=== PATIENT | male | born 1940 | race Caucasian/White ===

== ENCOUNTER → 2025-01-17 21:21 | Outpatient (BNV) | payer OTHER, MEDICARE, SELFPAY | PROVIDERS: Emergency Provider Emergency Medicine; PCP Nurse Practitioner Primary Care; Visit Provider Internal Medicine | DX: I49.1 Atrial premature depolarization (principal); I45.89 Other specified conduction disorders; I42.2 Other hypertrophic cardiomyopathy | CPT/HCPCS: 93010 ==

== ENCOUNTER 2025-01-17 21:22 | Emergency (ER) | payer OTHER, MEDICARE, SELFPAY ==
--- NOTE | 2025-01-17 | ECG_ITS ---
Test Reason : UPPER ABD PAIN Blood Pressure : */* mmHG Vent. Rate : 65 BPM Atrial Rate : 65 BPM P-R Int : 248 ms QRS Dur : 130 ms QT Int : 438 ms P-R-T Axes : -1 -53 41 degrees QTcB Int : 455 ms Atrial-paced rhythm with prolonged AV conduction with Premature atrial complexes Left axis deviation Left ventricular hypertrophy with QRS widening ( R in aVL , [place] product ) Abnormal ECG No previous ECGs available Referred By: Generic ED Physician Electronically Signed By: NAZANIN CALDERON
--- NOTE | ~2025-01-17 | XR_ITS ---
CLINICAL HISTORY: Epigastric chest pain 1 view chest x-ray Comparison: None provided Findings: Lungs are clear without acute infiltrates. No pneumothorax. Heart size normal. No acute bony abnormalities. Left pacemaker with right heart leads. Impression: No acute processes This document has been electronically signed by: Watson Charles MD on 01/17/2025 23:11:55
[2025-01-17 21:18] VITALS: BP 139/90; PULSE 64; O2SAT 94
[2025-01-17 21:23] VITALS: BP 125/55; PULSE 65; RESP 18; TEMP 36.6; O2SAT 96; BMI 31.2
[2025-01-17 21:43] LABS: MANUAL DIFF FLAG NO
[2025-01-17 21:44] LABS: Hematocrit 41.0 % (42.0-52.0); Hemoglobin 14.0 g/dl (14.0-18.0); Imm Gran Abs Auto 0.02 X10*3/uL (0.00-0.03); Imm Gran Pct Auto 0.4 % (0.0-0.4); Lymphocytes Absolute Auto 1.0 X10*3/uL (1.2-4.9); Mean Corpuscular HGB Conc 34.1 g/dl (31.0-36.0); Mean Corpuscular Hemoglobin 29.7 pg (27.0-33.0); Mean Corpuscular Volume 86.9 fL (80.0-98.0); NRBC Abs Auto 0.000 X10*3/uL (0.0-0.012); NRBC Pct Auto 0.0 /100WBC (0.0-0.2); Platelet Count 226 X10*3/uL (160-400); Red Blood Count 4.72 X10*6/uL (4.60-5.80); White Blood Count 5.7 X10*3/uL (4.8-10.8)
[2025-01-17 21:52] VITALS: BP 119/55; PULSE 64; RESP 14; O2SAT 94
[2025-01-17 21:52] LABS: INTERNATIONAL NORM RATIO 1.1 (0.9-1.1); Prothrombin Time 12.1 SEC (10.9-12.4)
[2025-01-17 22:01] LABS: Alanine Aminotransferase 46 U/L (0-40); Albumin Level 4.1 g/dL (3.5-5.0); Alkaline Phosphatase 82 U/L (39-117); Anion Gap 11 (12-20); Aspartate Amino Transferase 52 U/L (5-37); Blood Urea Nitrogen 22 mg/dL (9-16); Calcium 8.8 mg/dL (8.4-10.2); Carbon Dioxide 27 mmol/L (22-29); Chloride 107 mmol/L (96-108); Creatinine Clr Calc Pharmacy 63.0; Estimated Glomerular Filt Rate > 60; Lipase 55 U/L (8-78); Potassium 4.1 mmol/L (3.3-5.1); Sodium 141 mmol/L (135-145); Total Protein 6.6 g/dL (6.5-8.0)
[2025-01-17 22:09] LABS: Troponin-I High Sensitivity 4.9 ng/L (<3.5-35.0)
--- NOTE | 2025-01-17 22:19 | ED.ABDPAIN ---
HPI - Abdominal Pain General Chief Complaint: Abdominal Pain Stated Complaint: upper abd pain Time Seen by Provider: 01/17/25 22:18 History of Present Illness ED Provider: Emory Marshall MD HPI narrative: [age] male with severe midepigastric pain after eating tacos was found to be pale diaphoretic got aspirin. History of pacemaker on arrival felt better per triage note Patient tells me he mostly had epigastric pain abruptly right after eating tacos with heavy seizing. He usually needs a bland diet and attributes his symptoms to these tacos, the at the bedside also feels this was food related. No chest pain difficulty breathing. She said did say he looked a little bit clammy and pale briefly. Patient has a history of sick sinus syndrome with pacer he tells me it has 16% demand pacing. No known aortic disease otherwise quite healthy. Asymptomatic when I evaluate him he did not describe to me any radiation to the back shoulder neck jaw Related Data Previous Rx's ?Medication ?Instructions ?Recorded ondansetron 4 mg disintegrating 4 mg PO Q8H PRN nausea and 01/18/25 tablet vomiting #7 tabs Allergies Allergy/AdvReac Type Severity Reaction Status Date / Time No Known Allergies Allergy Verified 01/17/25 21:28 [facility] Social History Social History Alcohol intake: current Smoked in Last 30 Days: No Use of substances other than those prescribed or required for medical reasons: No Advance Directives: No Advance Directives Information Provided: Yes Physical Exam ED Vital Signs: Vital Signs - 24 hr 01/17/25 21:23 01/17/25 21:52 01/18/25 00:06 Temperature 97.8 F 97.8 F Pulse Rate 65 64 60 Respiratory Rate 18 14 16 Blood Pressure 125/55 L 119/55 L 119/66 Pulse Oximetry 96 94 94 Oxygen Delivery Method Room Air Room Air Room Air BMI result Body Mass Index 31.2 EXAM: Gen: Alert, awake, well appearing, well hydrated. Head: Atraumatic Eyes: Anicteric, Normal conjunctiva. ENT: Moist mucosa, no pallor. ? Neck: Supple. Skin: ?No observable rash or bruising on exposed or examined skin Respiratory: Breathing comfortably, No distress.Clear to auscultation bilaterally, symmetric chest expansion, No wheeze, rales, ronchi. Cardiovascular: Irregular with intermittent pacing. Rate approximately 60-70 No murmurs or rub. Well perfused periphery, warm extremities. No edema. ?Palpable pacer Abdominal: No focal tenderness. Soft, no objective distension. No palpable masses or obvious organomegaly. ?No guarding, no rebound tenderness or other peritoneal findings. : No flank tenderness. Neuro: Alert. Gross movement of all extremities intact. ? Psych: Calm. Cooperative. MSK: No grossly visible deformity. Vital signs: See flowsheet Procedures Procedure Narrative Procedure Narrative: EMERGENCY ULTRASOUND INTERPRETATION-Limited Echocardiography [This study was ordered, performed, and interpreted by myself. The study reveals: Impression: NORMAL LV FUNCTION, NO RV DYSFUNCTION, NO PERICARDIAL EFFUSION] [Emergent Cardiac for Indication: Views Used: PLAX, PSSA, A4, SX, IVC Pericardial Effusion/Tamponade Findings: NONE RV Dilation (> LV diam in 4ch apical): NONE Global LV Fxn: NORMAL IVC Dilation and Resp Variation: NORMAL Performed by: MD Rolando Images were stored CPT:03746] ___ EMERGENCY ULTRASOUND INTERPRETATION- Limited Point of Care Biliary [This study was ordered, performed, and interpreted by myself. Some limitation including slightly poor visualization of the gallbladder neck and CBD The study reveals: Impression: NO EVIDENCE OF ACUTE INFLAMMATION OF THE GALLBLADDER, NO EVIDENCE OF OBSTRUCTIVE BILIARY DISEASE] [Indication: RUQ PAIN Gallbladder: NO WALL THICKENING > 4MM, NO PERICHOLECYSTIC FLUID, NOT GROSSLY DILATED/HYDROPIC. -Additional: WALL MEASUREMENT: CBD MEASURMENT IF OBTAINED: Incidental imaging of the abdominal aorta in sagittal and transverse shows no signs of AAA Performed by: Emory Marshall MD Images were stored CPT:52422] Medical Decision Making Medical Decision Making MDM Narrative: Medical Decision Makin-year-old male with history of CAD status post stent, pacemaker who reports brief and sudden epigastric discomfort after eating tacos he was sweaty received aspirin and arrived without pain. No radiation of the back no numbness tingling weakness of the legs when I met him he was perfectly comfortable and had no acute symptoms. Him and his attributing this to the tacos and generalized GI upset after unusual or exotic foods particularly at nighttime. Patient has no abdominal tenderness no pulsatile mass has reassuring neurovascular exam of the lower extremities and has no cardiac symptoms. Certainly be given the epigastric pain and his cardiac history I felt it reasonable to exclude CO, 2 serial troponins negative. Bedside echo reassuring see procedure note. Bedside ultrasound the biliary system without acute pathology noted given some limitations. Preliminary Favored Differential Diagnosis: Gastritis/PUD/postprandial abdominal pain favored over anginal equivalents/CO, AAA, pancreatitis, biliary pathology among additional considered etiologies Testing Interpreted Independently: Echo without acute pathology see procedure note, point of care ultrasound of the biliary system without acute pathology see procedure note. ECG: Sinus rhythm versus junctional escape, the patient has history of sick sinus syndrome. Intermittent pacing, QRS 130, rate 65. Radiology or Lab testing Results Reviewed: Troponin x2 negative, CBC normal. Chemistry non actionable. Nonfasting glucose elevated 145 normal electrolytes. LFTs lipase normal chest x-ray without acute findings Consults: Not Applicable Independent Historians/External Chart Reviews: Not Applicable Social Determinants of Health Impacting MDM/Planning: Not Applicable Lab Data 01/17/25 21:39 01/17/25 21:39 Labs: Lab Results 01/17/25 01/17/25 01/17/25 Range/Units 21:39 22:14 23:57 WBC 5.7 (4.8-10.8) X10*3/uL RBC 4.72 (4.60-5.80) X10*6/uL Hgb 14.0 (14.0-18.0) g/dl Hct 41.0 L (42.0-52.0) % MCV 86.9 (80.0-98.0) fL MCH 29.7 (27.0-33.0) pg MCHC 34.1 (31.0-36.0) g/dl RDW 12.9 (11.0-16.0) % Plt Count 226 (160-400) X10*3/uL MPV 9.1 L (9.4-12.4) fL Immature Gran % (Auto) 0.4 (0.0-0.4) % Neut % (Auto) 70.8 (45-73) % Lymph % (Auto) 17.7 L (20-40) % [place] % (Auto) 7.9 (2-11) % Eos % (Auto) 3.0 (0-4) % Baso % (Auto) 0.2 (0-2) % Lymph # (Auto) 1.0 L (1.2-4.9) X10*3/uL [place] # (Auto) 0.5 (0.1-1.2) X10*3/uL Eos # (Auto) 0.2 (0.0-0.4) X10*3/uL Baso # (Auto) 0.0 (0.0-0.2) X10*3/uL Abs Immat Gran (auto) 0.02 (0.00-0.03) X10*3/uL Absolute Neuts (auto) 4.0 (2.0-8.3) x10*3/uL Absolute Nucleated RBC 0.000 (0.0-0.012) X10*3/uL Nucleated RBC % (auto) 0.0 (0.0-0.2) /100WBC PT 12.1 (10.9-12.4) SEC INR 1.1 (0.9-1.1) Sodium 141 (135-145) mmol/L Potassium 4.1 (3.3-5.1) mmol/L Chloride 107 (96-108) mmol/L Carbon Dioxide 27 (22-29) mmol/L Anion Gap 11 L (12-20) BUN 22 H (9-16) mg/dL Creatinine 1.09 (0.5-1.4) mg/dL Estim Creat Clear Calc 63.0 Estimated GFR > 60 Random Glucose 145 H (60-115) mg/dL Calcium 8.8 (8.4-10.2) mg/dL Total Bilirubin 0.4 (0.0-1.0) mg/dL AST 52 H (5-37) U/L ALT 46 H (0-40) U/L Alkaline Phosphatase 82 (39-117) U/L Troponin I High Sens 4.9 (<3.5-35.0) ng/L Total Protein 6.6 (6.5-8.0) g/dL Albumin 4.1 (3.5-5.0) g/dL Lipase 55 (8-78) U/L Urine Color Yellow Urine Appearance Clear Urine pH 6.5 (5.0-9.0) Ur Specific [place] 1.020 (1.005-1.025) Urine Protein Negative (Neg-Trace) mg/dL Urine Glucose (UA) Negative (Negative) mg/dL Urine Ketones Trace (Negative) mg/dL Urine Blood Moderate (2+) H (Negative) Urine Nitrite Negative (Negative) Ur Leukocyte Esterase Small (1+) H (Negative) Urine RBC >20 H (0-2) /HPF Urine WBC 6-10 H (0-5) /HPF Ur Squamous Epith Cells 0-2 (0-2) /HPF Urine Bacteria None Seen (None Seen) Hyaline Casts 0-2 (0-2) /LPF Influenza Type A (PCR) NEGATIVE (Negative) Influenza Type B (PCR) NEGATIVE (Negative) RSV RNA Qual (PCR) NEGATIVE (Negative) SARS-CoV-2 RNA (RT-PCR) NEGATIVE (Negative) 01/18/25 Range/Units 00:05 WBC (4.8-10.8) X10*3/uL RBC (4.60-5.80) X10*6/uL Hgb (14.0-18.0) g/dl Hct (42.0-52.0) % MCV (80.0-98.0) fL MCH (27.0-33.0) pg MCHC (31.0-36.0) g/dl RDW (11.0-16.0) % Plt Count (160-400) X10*3/uL MPV (9.4-12.4) fL Immature Gran % (Auto) (0.0-0.4) % Neut % (Auto) (45-73) % Lymph % (Auto) (20-40) % [place] % (Auto) (2-11) % Eos % (Auto) (0-4) % Baso % (Auto) (0-2) % Lymph # (Auto) (1.2-4.9) X10*3/uL [place] # (Auto) (0.1-1.2) X10*3/uL Eos # (Auto) (0.0-0.4) X10*3/uL Baso # (Auto) (0.0-0.2) X10*3/uL Abs Immat Gran (auto) (0.00-0.03) X10*3/uL Absolute Neuts (auto) (2.0-8.3) x10*3/uL Absolute Nucleated RBC (0.0-0.012) X10*3/uL Nucleated RBC % (auto) (0.0-0.2) /100WBC PT (10.9-12.4) SEC INR (0.9-1.1) Sodium (135-145) mmol/L Potassium (3.3-5.1) mmol/L Chloride (96-108) mmol/L Carbon Dioxide (22-29) mmol/L Anion Gap (12-20) BUN (9-16) mg/dL Creatinine (0.5-1.4) mg/dL Estim Creat Clear Calc Estimated GFR Random Glucose (60-115) mg/dL Calcium (8.4-10.2) mg/dL Total Bilirubin (0.0-1.0) mg/dL AST (5-37) U/L ALT (0-40) U/L Alkaline Phosphatase (39-117) U/L Troponin I High Sens 4.7 (<3.5-35.0) ng/L Total Protein (6.5-8.0) g/dL Albumin (3.5-5.0) g/dL Lipase (8-78) U/L Urine Color Urine Appearance Urine pH (5.0-9.0) Ur Specific [place] (1.005-1.025) Urine Protein (Neg-Trace) mg/dL Urine Glucose (UA) (Negative) mg/dL Urine Ketones (Negative) mg/dL Urine Blood (Negative) Urine Nitrite (Negative) Ur Leukocyte Esterase (Negative) Urine RBC (0-2) /HPF Urine WBC (0-5) /HPF Ur Squamous Epith Cells (0-2) /HPF Urine Bacteria (None Seen) Hyaline Casts (0-2) /LPF Influenza Type A (PCR) (Negative) Influenza Type B (PCR) (Negative) RSV RNA Qual (PCR) (Negative) SARS-CoV-2 RNA (RT-PCR) (Negative) Medications Administered Discontinued Medications Generic Name Dose Route Start Last Admin Trade Name Freq PRN Reason Stop Dose Admin Al Hydroxide/Mg Hydroxide 30 ml 01/17/25 22:20 01/17/25 22:34 Magnesium Hydrox/Alum Hydrox 30 Ml Oral.Susp PO 01/17/25 22:21 30 ml ONCE ONE Administration Pantoprazole Sodium 40 mg 01/17/25 22:20 01/17/25 22:34 Pantoprazole Sodium 40 Mg/10 Ml Vial IVPUSH 01/17/25 22:21 40 mg ONCE ONE Administration Sucralfate 1 gm 01/17/25 22:20 01/17/25 22:34 Sucralfate Oral Suspension 1 Gm/10 Ml Oral.Susp PO 01/17/25 22:21 1 gm ONCE ONE Administration Discharge Plan Discharge Clinical Impression: Abdominal pain, acute, epigastric Patient Disposition: Home, Self-Care Instructions: Acute Abdominal Pain (ED) Additional Instructions: DISCHARGE DIAGNOSES: Acute episode of epigastric upper abdominal pain unclear cause could be food related or gastritis or ulcer of the stomach. Needs further workup as outpatient HISTORY OF PRESENTATION: ?Severe abrupt pain in the upper abdomen after eating associated with sweating. You received aspirin with EMS. EMERGENCY DEPARTMENT COURSE,TESTS, TREATMENTS: While in the ED today in the emergency department he had complete resolution of your pain and had a reassuring examination, ECG, blood tests including blood counts, blood chemistry renal function liver function pancreas function and cardiac enzymes/heart attack blood enzyme which was negative. You had a bedside point of care ultrasound of your heart and gallbladder which were reassuring. DISCHARGE MEDICATIONS: ?[We have made no changes to your regular medication regimen] FOLLOW-UP: ?Call your primary or general physician soon as possible to discuss your symptoms, your ED visit and to discuss follow up plans Call your operations accountant and primary doctor tomorrow 1st thing in the morning to discuss follow up you may need referral to GI for endoscopy and your operations accountant may want to see you after these symptoms. INSTRUCTIONS ?& RETURN PRECAUTIONS: If any symptoms change first call your primary physician, if it is after-hours your primary doctors office should have a provider lubrication worker you can speak with. If the symptoms are severe or very concerning to you then call 911 or return to the ED. Emory Marshall MD Emergency Physician [facility] Prescriptions: New ondansetron 4 mg tablet,disintegrating 4 mg PO Q8H PRN (Reason: nausea and vomiting) Qty: 7 0RF Interventions: ED Discharge Assessment Last Done: 01/18/25 02:01 Discharge Date/Time: 01/18/25 02:01 Print Language: Armenian
[2025-01-17] MEDS: Magnesium Hydrox/Alum Hydrox 30 ML ORAL.SUSP PO (22:34)
[2025-01-17] MEDS: Sucralfate Oral Suspension 1 GM/10 ML ORAL.SUSP PO (22:34)
[2025-01-17 22:58] LABS: Resp Syncy Virus RNA Qual PCR NEGATIVE (Negative); SARS COV2 PCR INHOUSE NEGATIVE (Negative)
[2025-01-18 00:06] VITALS: BP 119/66; PULSE 60; RESP 16; TEMP 36.6; O2SAT 94
[2025-01-18 00:06] LABS: Appearance Urine Clear; Glucose Urine UA Negative (Negative); PH 6.5 (5.0-9.0); Specific Gravity - Urine 1.020 (1.005-1.025); UMIC TRIGGER UACC YES
[2025-01-18 00:11] LABS: UACC Culture Trigger YES
[2025-01-18 00:34] LABS: Troponin-I High Sensitivity 4.7 ng/L (<3.5-35.0)
[2025-01-18 02:01] VITALS: BP 119/66; PULSE 60; RESP 16; TEMP 36.6; O2SAT 94
== END 2025-01-18 02:01 | disposition home or self-care (01) ==
PROVIDERS: Emergency Provider Emergency Medicine; PCP Nurse Practitioner Primary Care
DX: R10.13 Epigastric pain (principal); R94.31 Abnormal electrocardiogram [ECG] [EKG]; I25.10 Atherosclerotic heart disease of native coronary artery without angina pectoris; Z79.899 Other long term (current) drug therapy; Z03.818 Encounter for observation for suspected exposure to other biological agents ruled out
CPT/HCPCS: 36415; 71045; 80053; 81001; 83690; 84484; 85025; 85610; 87086; 87637; 93005; 96374; 99284; J2470

== ENCOUNTER → 2025-01-17 22:21 | Outpatient (BNV) | payer SELFPAY | PROVIDERS: Emergency Provider Emergency Medicine; Visit Provider Radiology Diagnostic Radiology | DX: R10.13 Epigastric pain (principal); R07.9 Chest pain, unspecified | CPT/HCPCS: 71045 ==

== ENCOUNTER 2025-02-24 14:44 | Emergency (ER) | payer OTHER, SELFPAY ==
[2025-02-24] VITALS (7 sets, daily range): BP systolic 85–129; BP diastolic 48–65; PULSE 70–92; RESP 15–18; TEMP 36.1; O2SAT 86–97; BMI 30.8
--- NOTE | ~2025-02-24 | CT_ITS ---
CLINICAL HISTORY: syncope. positive lactic acidosis CT abdomen and pelvis with contrast Comparison: None provided Findings: There is a cardiac pacemaker. There is no consolidation or pleural effusion. Unremarkable abdominal organs. Multiple small gallstones within the gallbladder. No biliary dilatation. There is fluid distention of multiple segments of small bowel and there is fecal type material within distal small bowel but there is no dilatation or transition point to suggest an obstructive process. No bowel edema. No pneumatosis or portal venous gas. The prostate gland is mildly enlarged. The urinary bladder is unremarkable. Of the origin of the appendix is prominent but the tip is unremarkable and there is no obvious associated edema. The bones are intact. IMPRESSION: 1. Fluid distention of segments of small bowel without focal bowel inflammation or evidence of bowel obstruction. 2. There is cholelithiasis. This document has been electronically signed by: Heidi Hilario MD on 02/24/2025 19:12:41
--- NOTE | ~2025-02-24 | CT_ITS ---
CLINICAL HISTORY: syncope CT angiography chest with contrast. 3D Postprocessing. Comparison: None provided Findings: Normal heart size. There is a cardiac pacemaker. The thoracic aorta is normal caliber. No pulmonary artery filling defects. The visualized thyroid and mediastinum are unremarkable. No consolidation or pleural effusion. Mild dependent changes. There are multiple small gallstones within the gallbladder. The bones are intact. IMPRESSION: No evidence of pulmonary artery embolism. This document has been electronically signed by: Heidi Hilario MD on 02/24/2025 19:14:02
--- NOTE | ~2025-02-24 | XR_ITS ---
EXAMINATION: XR CHEST CLINICAL INFORMATION: Pneumonia. Mild hypoxia COMPARISON: January 17, 2025 TECHNIQUE: Frontal view of the chest was obtained. FINDINGS: Left axillary pacemaker is present with 2 leads extending to the right atrium and right ventricle, unchanged. Lung volumes are mildly decreased. Lungs are clear. No pleural effusion is evident. Heart size is within normal limits. XR/XR chest 1V IMPRESSION: No acute disease. Electronically signed by: Neno Cisneros MD 02/24/2025 03:39 PM EDT
--- NOTE | ~2025-02-24 | CT_ITS ---
CLINICAL HISTORY: syncope fall CT head without contrast Comparison: None provided Findings: No intra-axial mass, midline shift, hydrocephalus, or acute hemorrhage. Involutional change of brain parenchyma, compatible with age. Mild white matter disease. There is mucosal thickening within the paranasal sinuses. There are no air-fluid levels. The orbits are unremarkable. There is no acute fracture. IMPRESSION: 1. No acute intracranial findings. This document has been electronically signed by: Heidi Hilario MD on 02/24/2025 19:04:51
--- NOTE | ~2025-02-24 | CT_ITS ---
CLINICAL HISTORY: syncope, fall CT cervical spine without contrast Comparison: None provided Findings: Trace retrolisthesis of C4 on C5. Trace anterolisthesis of C6 on C7, C7 on T1 and T1 on T2. Multilevel spondylosis and facet osteoarthritis. Ankylosis of the C2 and C3 vertebral segments. Atcg-hn-ijadttry central canal stenosis at C4-C5. No acute fractures or dislocations. No acute findings on limited view of the intracranial contents. Soft tissues of the neck are normal. No consolidation or effusion at the lung apices. IMPRESSION: No acute findings. This document has been electronically signed by: Heidi Hilario MD on 02/24/2025 19:16:49
--- NOTE | 2025-02-24 15:00 | ECG_ITS ---
Test Reason : WEAKNESS Blood Pressure : */* mmHG Vent. Rate : 65 BPM Atrial Rate : 65 BPM P-R Int : 216 ms QRS Dur : 122 ms QT Int : 450 ms P-R-T Axes : 30 -59 28 degrees QTcB Int : 468 ms Sinus rhythm with 1st degree A-V block Left anterior fascicular block Left ventricular hypertrophy with QRS widening ( R in aVL , [place] product ) Possible Lateral infarct , age undetermined Abnormal ECG When compared with ECG of 17-Jan-2025 21:21, Sinus rhythm has replaced Electronic atrial pacemaker Referred By: Gonzalez Bhatt Electronically Signed By: GUERLINE SMITH MD
--- NOTE | 2025-02-24 15:15 | ED.GENADULT ---
HPI - General Adult General Chief complaint: Syncope Stated complaint: bee sting ?allergy Time Seen by Provider: 02/24/25 14:46 History of Present Illness ED Provider: Gonzalez Bhatt HPI narrative: 84 yold male with pmh of pacemaker and stent presents to the for bee sting in lower extremities and than having a syncopal episodes. patient was found to be hypotensive and hypoxic of 86% room air by EMS. Patient states inner thights have be stings. Patient denies any lip swelling, tongue swelling, drooling, change in voivce, or rash elswhere on his body. Patient is presently denies any chest pain or shortness of breath. Related Data Previous Rx's ?Medication ?Instructions ?Recorded ondansetron 4 mg disintegrating 4 mg PO Q8H PRN nausea and 01/18/25 tablet vomiting #7 tabs Allergies Allergy/AdvReac Type Severity Reaction Status Date / Time No Known Allergies Allergy Verified 02/24/25 15:22 Review of Systems Review of Systems: Bee sting, syncopal episode, hypoxic, hypotensive Yes all other systems are reviewed and are negative [facility] Social History Social History Alcohol intake: current Smoked in Last 30 Days: No Use of substances other than those prescribed or required for medical reasons: No Advance Directives: No Advance Directives Information Provided: Yes Do you have a plan to hurt others: No Plan Physical Exam ED Vital Signs: Vital Signs - 24 hr 02/24/25 15:13 02/24/25 15:48 02/24/25 17:03 Temperature 97 F Pulse Rate 72 71 74 Respiratory Rate 18 16 Blood Pressure 121/51 L 122/51 L 126/57 L Pulse Oximetry 93 97 Oxygen Delivery Method Room Air Nasal Cannula Oxygen Flow Rate 2 02/24/25 17:04 02/24/25 17:05 02/24/25 18:36 Temperature Pulse Rate 85 92 70 Respiratory Rate 15 Blood Pressure 119/48 L 125/56 L 123/62 Pulse Oximetry 96 Oxygen Delivery Method Room Air Oxygen Flow Rate BMI result Body Mass Index 30.8 Const General: cooperative, healthy appearing, comfortable, no acute distress, well developed, alert, awake and Physically active Orientation/consciousness: patient oriented x3 HENMT Head: Yes normal to inspection, Yes No palpable skull fracture present, Yes normocephalic and Yes atraumatic Ears: hearing grossly normal bilaterally, external ears normal, TM's normal bilaterally, TM normal on the right, TM normal on the left, EAC's normal and mastoids normal Throat: Yes posterior oropharynx normal, Yes tonsils normal and Yes uvula midline Eyes General: appearance normal, both eyes and all related structures Neck Neck: Yes normal visual inspection, Yes full ROM, Yes no lymphadenopathy, Yes no meningeal signs, Yes trachea midline, Yes supple, No anterior neck swelling and No tender Chest Chest palpation & inspection: normal inspection of the chest and normal palpation of entire chest wall Resp Effort & Inspection: normal respiratory effort and able to speak in complete sentences Auscultation: clear to auscultation bilaterally Cardio Jugular venous distension: no JVD Heart sounds: S1 normal heart sound present and S2 normal heart sound present GI Inspection: Yes normal to inspection Palpation (GI): Soft to palpation, not firm, nontender and no guarding General: Yes no CVA tenderness Back/Spine/Pelvis Back: no CVA tenderness and No back tenderness Skin General skin exam: no rashes or lesions noted, elasticity normal and turgor normal Neuro General: patient oriented x3, gait normal, tone normal, moves all extremities, Normal light touch and pain sensation, no meningeal signs, no focal motor deficits, CN's II-XI intact bilaterally and normal sensation to monofilament Extrem Upper/lower leg/hip images:  1. Positive for bug bite with local erythema negative for erythema marginal, pus discharge, foul odor or fluctuance. Rest of extremity normal. Negative for swelling pitting edema or calf tenderness. Motor/neuro/vascular exam intact. 2. Positive for bug bite with local erythema negative for erythema marginal, pus discharge, foul odor or fluctuance. Rest of extremity normal. Negative for swelling pitting edema or calf tenderness. Motor/neuro/vascular exam intact. Psych Appearance: grossly normal, well kempt and not disheveled Course Reevaluation(s) Reevaluation #1: I Delia Mclaughlin PA-C have accepted care of the patient and signed out pending imaging, labs and final disposition Labs: Repeat lactic 1.8, delta troponin 11.7 CT brain:Findings: No intra-axial mass, midline shift, hydrocephalus, or acute hemorrhage. Involutional change of brain parenchyma, compatible with age. Mild white matter disease. There is mucosal thickening within the paranasal sinuses. There are no air-fluid levels. The orbits are unremarkable. There is no acute fracture. IMPRESSION: 1. No acute intracranial findings. CT cervical spine: Findings: Trace retrolisthesis of C4 on C5. Trace anterolisthesis of C6 on C7, C7 on T1 and T1 on T2. Multilevel spondylosis and facet osteoarthritis. Ankylosis of the C2 and C3 vertebral segments. Gfdx-bc-wkwyvoim central canal stenosis at C4-C5. No acute fractures or dislocations. No acute findings on limited view of the intracranial contents. Soft tissues of the neck are normal. No consolidation or effusion at the lung apices. IMPRESSION: No acute findings. CTA chest:Findings: Normal heart size. There is a cardiac pacemaker. The thoracic aorta is normal caliber. No pulmonary artery filling defects. The visualized thyroid and mediastinum are unremarkable. No consolidation or pleural effusion. Mild dependent changes. There are multiple small gallstones within the gallbladder. The bones are intact. IMPRESSION: No evidence of pulmonary artery embolism. CT abdomen and pelvis:indings: There is a cardiac pacemaker. There is no consolidation or pleural effusion. Unremarkable abdominal organs. Multiple small gallstones within the gallbladder. No biliary dilatation. There is fluid distention of multiple segments of small bowel and there is fecal type material within distal small bowel but there is no dilatation or transition point to suggest an obstructive process. No bowel edema. No pneumatosis or portal venous gas. The prostate gland is mildly enlarged. The urinary bladder is unremarkable. Of the origin of the appendix is prominent but the tip is unremarkable and there is no obvious associated edema. The bones are intact. IMPRESSION: 1. Fluid distention of segments of small bowel without focal bowel inflammation or evidence of bowel obstruction. 2. There is cholelithiasis. The patient is not truly hypoxic, his chest x-ray and CTA of the chest are completely normal, we ambulated the patient his oxygen was maintained at 94%. He is eager for discharge we will do so now. Medications Administered Discontinued Medications Generic Name Dose Route Start Last Admin Trade Name Freq PRN Reason Stop Dose Admin Sodium Chloride 1,000 mls @ 999 mls/hr 02/24/25 15:00 02/24/25 17:41 Ns IV 02/24/25 16:00 Infused .Q1H1M STA Infusion Sodium Chloride 1,000 mls @ 999 mls/hr 02/24/25 16:34 02/24/25 19:25 Ns IV 02/24/25 17:34 Infused .Q1H1M STA Infusion Iohexol 100 ml 02/24/25 18:02 02/24/25 18:02 Iohexol 350 Mg/Ml 100 Ml Infus..Btl IV 02/24/25 18:03 85 ml ONCE ONE Administration Medical Decision Making Medical Decision Making [facility] Narrative: [age] year male presents to ED for bee sting bilateral legs but then found to be hypotensive and hypoxic on syncopal episode at his house patient brought in by EMS. Patient is present blood pressure stable O2 saturation 91 92% on room air. Orthostatics labs EKG chest x-ray ordered. No signs of neuro deficit. 5:52pm: Orthostatics negative. Lactic 2.5. Imaging still pending. Patient's vital signs are stable. UA negative UTI. Chest x-ray negative pneumonia. Differential Diagnosis Differential Diagnoses: The differential diagnosis associated with the presentation includes (WV, PE, orthostatics) Admission/Observation Consideration of admission/observation: Escalation of care including admission/observation considered Lab Data [facility] Lab Attestation statement: I reviewed the patient's lab results. 02/24/25 15:36 02/24/25 15:35 Labs: Lab Results 02/24/25 02/24/25 02/24/25 Range/Units 15:34 15:35 15:36 WBC 13.2 H (4.8-10.8) X10*3/uL RBC 5.29 (4.60-5.80) X10*6/uL Hgb 15.7 (14.0-18.0) g/dl Hct 46.5 (42.0-52.0) % MCV 87.9 (80.0-98.0) fL MCH 29.7 (27.0-33.0) pg MCHC 33.8 (31.0-36.0) g/dl RDW 13.2 (11.0-16.0) % Plt Count 265 (160-400) X10*3/uL MPV 9.3 L (9.4-12.4) fL Immature Gran % (Auto) 0.6 H (0.0-0.4) % Neut % (Auto) 86.6 H (45-73) % Lymph % (Auto) 7.0 L (20-40) % [place] % (Auto) 5.3 (2-11) % Eos % (Auto) 0.4 (0-4) % Baso % (Auto) 0.1 (0-2) % Lymph # (Auto) 0.9 L (1.2-4.9) X10*3/uL [place] # (Auto) 0.7 (0.1-1.2) X10*3/uL Eos # (Auto) 0.1 (0.0-0.4) X10*3/uL Baso # (Auto) 0.0 (0.0-0.2) X10*3/uL Abs Immat Gran (auto) 0.08 H (0.00-0.03) X10*3/uL Absolute Neuts (auto) 11.5 H (2.0-8.3) x10*3/uL Absolute Nucleated RBC 0.000 (0.0-0.012) X10*3/uL Nucleated RBC % (auto) 0.0 (0.0-0.2) /100WBC PT 11.8 (10.9-12.4) SEC INR 1.0 (0.9-1.1) APTT 32.6 (26.7-34.1) SEC Sodium 142 (135-145) mmol/L Potassium 4.3 (3.3-5.1) mmol/L Chloride 105 (96-108) mmol/L Carbon Dioxide 27 (22-29) mmol/L Anion Gap 14 (12-20) BUN 16 (9-16) mg/dL Creatinine 1.11 (0.5-1.4) mg/dL Estim Creat Clear Calc 61.4 Estimated GFR > 60 Random Glucose 129 H (60-115) mg/dL Lactic Acid 2.5 H* (0.5-2.0) mmol/L Lactic Acid F/U @ 2Hr (0.5-2.0) mmol/L Calcium 9.4 D (8.4-10.2) mg/dL Total Bilirubin 0.8 (0.0-1.0) mg/dL AST 36 (5-37) U/L ALT 27 (0-40) U/L Alkaline Phosphatase 85 (39-117) U/L Troponin I High Sens 9.3 D (<3.5-35.0) ng/L B-Natriuretic Peptide 49 (<100) pg/mL Total Protein 6.9 (6.5-8.0) g/dL Albumin 4.4 (3.5-5.0) g/dL Urine Color Urine Appearance Urine pH (5.0-9.0) Ur Specific [place] (1.005-1.025) Urine Protein (Neg-Trace) mg/dL Urine Glucose (UA) (Negative) mg/dL Urine Ketones (Negative) mg/dL Urine Blood (Negative) Urine Nitrite (Negative) Ur Leukocyte Esterase (Negative) 02/24/25 02/24/25 Range/Units 17:06 19:21 WBC (4.8-10.8) X10*3/uL RBC (4.60-5.80) X10*6/uL Hgb (14.0-18.0) g/dl Hct (42.0-52.0) % MCV (80.0-98.0) fL MCH (27.0-33.0) pg MCHC (31.0-36.0) g/dl RDW (11.0-16.0) % Plt Count (160-400) X10*3/uL MPV (9.4-12.4) fL Immature Gran % (Auto) (0.0-0.4) % Neut % (Auto) (45-73) % Lymph % (Auto) (20-40) % [place] % (Auto) (2-11) % Eos % (Auto) (0-4) % Baso % (Auto) (0-2) % Lymph # (Auto) (1.2-4.9) X10*3/uL [place] # (Auto) (0.1-1.2) X10*3/uL Eos # (Auto) (0.0-0.4) X10*3/uL Baso # (Auto) (0.0-0.2) X10*3/uL Abs Immat Gran (auto) (0.00-0.03) X10*3/uL Absolute Neuts (auto) (2.0-8.3) x10*3/uL Absolute Nucleated RBC (0.0-0.012) X10*3/uL Nucleated RBC % (auto) (0.0-0.2) /100WBC PT (10.9-12.4) SEC INR (0.9-1.1) APTT (26.7-34.1) SEC Sodium (135-145) mmol/L Potassium (3.3-5.1) mmol/L Chloride (96-108) mmol/L Carbon Dioxide (22-29) mmol/L Anion Gap (12-20) BUN (9-16) mg/dL Creatinine (0.5-1.4) mg/dL Estim Creat Clear Calc Estimated GFR Random Glucose (60-115) mg/dL Lactic Acid (0.5-2.0) mmol/L Lactic Acid F/U @ 2Hr 1.8 (0.5-2.0) mmol/L Calcium (8.4-10.2) mg/dL Total Bilirubin (0.0-1.0) mg/dL AST (5-37) U/L ALT (0-40) U/L Alkaline Phosphatase (39-117) U/L Troponin I High Sens 11.7 (<3.5-35.0) ng/L B-Natriuretic Peptide (<100) pg/mL Total Protein (6.5-8.0) g/dL Albumin (3.5-5.0) g/dL Urine Color Yellow Urine Appearance Clear Urine pH 7.5 (5.0-9.0) Ur Specific [place] 1.015 (1.005-1.025) Urine Protein Trace (Neg-Trace) mg/dL Urine Glucose (UA) Negative (Negative) mg/dL Urine Ketones Negative (Negative) mg/dL Urine Blood Negative (Negative) Urine Nitrite Negative (Negative) Ur Leukocyte Esterase Negative (Negative) Independent Interpretation I performed an independent interpretation of an: EKG (negative STEmI) Radiology Impression Discussion of test interpretation with radiology: I have reviewed the radiologist's reading. Independent Historian Clinical information obtained from an independent historian. History obtained from or confirmed by: Other (patient) Discharge Plan Discharge Clinical Impression: Vasovagal syncope Patient Disposition: Home, Self-Care Instructions: Syncope (ED), Valsalva Maneuver (ED) Additional Instructions: I do believe you experienced a vasovagal reaction that caused you to pass out. All of your screening labs including 2 cardiac enzymes were normal. The CT scans of your brain, cervical spine, chest and abdomen were normal as well. For your back pain following the fall, you can alternate between [id number] ibuprofen 600 mg taken every 6 hours with food, with fuxk-eyv-dcgmqet Tylenol 1000 mg taken every 8 hours. For the itching associated with a bee sting, you can apply topical hydrocortisone cream and topical Benadryl cream. You can also use tbky-llq-[id number] Zyrtec daily. Follow up with your primary care provider as needed. Prescriptions: No Action ondansetron 4 mg tablet,disintegrating 4 mg PO Q8H PRN (Reason: nausea and vomiting) Qty: 7 0RF Discharge Date/Time: 02/24/25 21:00 Print Language: [place]
[2025-02-24 15:41] LABS: MANUAL DIFF FLAG NO
[2025-02-24 15:43] LABS: Hematocrit 46.5 % (42.0-52.0); Hemoglobin 15.7 g/dl (14.0-18.0); Imm Gran Abs Auto 0.08 X10*3/uL (0.00-0.03); Imm Gran Pct Auto 0.6 % (0.0-0.4); Lymphocytes Absolute Auto 0.9 X10*3/uL (1.2-4.9); Mean Corpuscular HGB Conc 33.8 g/dl (31.0-36.0); Mean Corpuscular Hemoglobin 29.7 pg (27.0-33.0); Mean Corpuscular Volume 87.9 fL (80.0-98.0); NRBC Abs Auto 0.000 X10*3/uL (0.0-0.012); NRBC Pct Auto 0.0 /100WBC (0.0-0.2); Platelet Count 265 X10*3/uL (160-400); Red Blood Count 5.29 X10*6/uL (4.60-5.80); White Blood Count 13.2 X10*3/uL (4.8-10.8)
[2025-02-24 15:47] LABS: INTERNATIONAL NORM RATIO 1.0 (0.9-1.1); Prothrombin Time 11.8 SEC (10.9-12.4)
[2025-02-24 15:50] LABS: Partial Thromboplastin Time 32.6 SEC (26.7-34.1)
[2025-02-24 15:56] LABS: Alanine Aminotransferase 27 U/L (0-40); Albumin Level 4.4 g/dL (3.5-5.0); Alkaline Phosphatase 85 U/L (39-117); Anion Gap 14 (12-20); Aspartate Amino Transferase 36 U/L (5-37); Blood Urea Nitrogen 16 mg/dL (9-16); Calcium 9.4 mg/dL (8.4-10.2); Carbon Dioxide 27 mmol/L (22-29); Chloride 105 mmol/L (96-108); Creatinine Clr Calc Pharmacy 61.4; Estimated Glomerular Filt Rate > 60; Potassium 4.3 mmol/L (3.3-5.1); Sodium 142 mmol/L (135-145); Total Protein 6.9 g/dL (6.5-8.0)
--- OUTSIDE RECORDS SUMMARY | 2025-02-24 15:59 | XMS_ITS | Patient Health Record ---
[facility] Organization [facility] [employer] Address [address] [facility] [place] [address] Care Team Providers Care Fire Safety Director Name Role Phone Jimbo Ferrara MD Primary Care Provider Unavail able Denny Peacock Unavailable [phone] Allergies Allergen (clinical drug ingredient) Drug/Non Drug Allergy documented on EMR Reaction Allergy Type Onset Date Status Seasonal Allergies (uncoded) Unknown Allergy Active Reason For Referral No Information Medications Medication SIG (Take, Route, Frequency, Duration) Notes Start Date End Date Status Naprosyn 100 MG ONCE A DAY Act chandrakant Atorvastatin Calcium 40 MG Orally Active Aspirin 81 MG Orally PRN Activ e Social History Tobacco Use: Social History Observation Description Date Details (start date - stop date) Never Smoker NA - NA Tobacco Use/Smoking Question Answer Notes Are you a: nonsmoker Additional Findings: Tobacco Non-User Current no n-smoker Alcohol Screen Question Answer Notes Did you have a drink containing alcohol in the p ast year? Yes Points 0 Interpretation Negative Tobacco use other than smoking: Question Answer Notes Are you an other tobacco user? No Problems Problem Type SNOMED Code ICD Code Onset Dates Problem Status W/U Status Risk Notes Problem Acquired hallux valgus (21429118) Hallux valgus (acquired), left foot (M20.12) Active confirmed Problem Other hammer toe(s) (acquired), left foot (M20.42) Active confirmed Plan Of Treatment No Information Insurance Providers Payer Name Payer Address Payer Phone Subscriber Number Group Number Insured Name Patient Relationship to Insured Coverage Start Date Coverage End Date [facility] -[id number] [address] [place] [address] [id number] Ale Owens Spouse - patient is the spouse of the insured [employer] [address] [place] [address] [id number] Arnav Owens Self - patient is the insured Medical (General) History Medical History History ICD Code Heart disease Measles Mumps Chicken pox Cholesterol Surgical History Surgery Date(Month/Year) Stent 2009
--- OUTSIDE RECORDS SUMMARY | 2025-02-24 15:59 | XMS_ITS | Clinical Summary ---
Author Organization [address] [place] [address] [place] [id number] Phone Care Team Providers Care Bookbinder Apprentice Name Role Phone Ngozi Jenknis NP Primary Care Provider [phone] Allergies Active Allergy Reactions Criticality Noted Date Comments Other 05/03/2022 Seasonal Medications atorvastatin (LIPITOR) 20 mg tablet Take 1 tablet (20 mg total) by mouth at bedtime. Active multivit-min/iro n/folic acid/K (ADULTS MULTIVITAMIN ORAL) Take by mouth. Activ e glucosamine-deidra droitin 500-400 mg tablet Take 1 tablet by mouth 3 (three) times a day. Active cinnamon bark (CINNAMON ORAL) Take by mouth. Takes a tablespoon a day Active aspirin 81 mg EC tablet Take 1 tablet (81 mg total) by mouth 1 (one) time each day. 2 025 Discontin ued(Non-c ompliance ) Active Problems Problem Noted Date Diagnosed Date Palpitations 08/14/2023 SSS (sick sinus syndrome) (CMS/HCC V24, CMS/HCC V28) 08/14/2023 Assessment & Plan (10/22/2024 3:52 PM EDT): Patient is status post implantation of a [employer] dual-chamber permanent pacemaker in August 2023. most recent device download shows normal device function with no new alerts, atrial paced 16% of the time and ventricular paced 5% of the time. Will continue to monitor device with in office and remote downloads. Dizziness 06/11/2023 Overview (06/16/2024): Last Assessment & Plan: Unclear what triggered those episodes. Given the age, need to make sure he does not have significant bradycardia arrhythmia. I will schedule a 30-day monitor. Also suggest him to obtain a commercial smart watch and check blood pressure at home intermittently, especially with symptoms. Assessment & Plan (10/22/2024 3:51 PM EDT): Patient is describing dizziness/lightheadedness from 2 possible etiologies. The dizziness he describes sounds consistent with vertigo. He has seen ENT in the past for this but it has been a while. I suggested contacting his PCP and/or ENT to discuss symptoms and possible treatments. The lightheadedness sounds like an element of orthostasis. Blood pressure is soft today at 100/66. He is not on any antihypertensive medications. I encouraged increased hydration, use compression socks and take position changes slowly. I asked him to contact the office should he develop worsening symptoms of lightheadedness or if he develops near-syncope/syncope. Coronary artery disease invo lving chilkoot heart without angina pectoris 05/05/2022 Overview (06/16/2024): Last Assessment & Plan: Coronary artery disease appears stable without angina symptoms. Lipid profile is at target. We will continue aspirin and statin. Assessment & Plan (10/22/2024 3:51 PM EDT): Patient has a history of stable coronary artery disease status post PCI to the LAD in 2009. Cardiac catheterization in February 2018 was completed after patient presented to [facility] for complaint of atypical chest pain. The angiographic findings showed a normal LMCA, mild luminal irregularities (<30%) in the mid LAD with a widely patent stent, minimal luminal irregularities in the LCx, and 35% stenosis in the mid RCA. He denies signs and symptoms of coronary insufficiency. Last lipid panel reviewed, LDL 91 which is not at goal of <70. He tells me he only recently restarted atorvastatin 20 mg which was previously stopped due to to elevated LFTs. [facility]up visit in the fall. Continue on aspirin and atorvastatin as prescribed. Will update echocardiogram to reassess cardiac function and structures. Encounters Date Type Department Care Team Description 02/16/2025 9:30 AM EDT Ancillary Procedure [facility] Cardiology [facility] - [address] [place] [address] 02/09/2025 Telephone [facility] Cardiology [facility] - [address] [place] [address] Corazon Nelson NP Dizziness 01/10/2025 12:15 PM EDT Ancillary Procedure [facility] Cardiology [facility] - [address] [place] [address] 12/17/2024 Telephone [facility] Cardiology [facility] - [address] [place] [address] Maren Manning [place] 12/15/2024 10:30 AM EDT Ancillary Procedure [facility] Cardiology [facility] - [address] [place] [address] Coronary artery disease involving chilkoot coronary artery of chilkoot heart without angina pectoris from Last 3 Months Social History Tobacco Use Types Packs/Day Years Used Date Smoking Tobacco: Never Smokeless Tobacco: Never Alcohol Use Standard Drinks/Week Comments Yes 0 (1 standard drink = 0.6 oz pur e alcohol) occasionally Sex and Gender Information Value Date Recorded Sex Assigned at Not on file Legal Sex Male 1:22 PM EST Gender Identity Not on file Sexual Orientation Not on file Obstetrics History Last Filed Vital Signs Vital Sign Reading Time Taken Comments Blood Pressure 110/58 12/15/2024 11:04 AM EDT Pulse 83 10/22/2024 2:43 PM EDT Temperature - - Respiratory Rate - - Oxygen Saturation 93% 10/22/2024 2:43 PM EDT Inhaled Oxygen Concentration - - Weight 101 kg (223 lb) 12/15/2024 11:04 AM EDT Height 182.9 cm (6') 12/15/2024 11:04 AM EDT Body Mass Index 30.24 12/15/2024 11:04 AM EDT Plan of Treatment Upcoming Encounters Date Type Department Care Team (Late st Contact Info) Description 05/10/2025 10:40 AM EST Office Visit [facility] Cardiology [facility] - [address] [place] [phone] Corazon Nelson, REE [address] [place] [id number] 10/04/2025 11:00 AM EDT Ancillary Procedure [facility] - [address] [place] [address] Health Maintenance Due Date Last Done Comments DTaP,Tdap,and Td Vaccines (1 - Tdap) 11/01/1959 Pneumococcal Vaccine: 50+ Years (1 of 1 - PCV) 1990 Falls Risk Assessment 06/15/2022 Medicare Annual Wellness Visit 06/15/2022 Social Influencers of Health Screening 06/15/2022 Hypertension/CHF/CAD Annual BMP Blood Test 06/16/2022 Depression Screening 07/07/2024 COVID-19 Vaccine ( season) 2024 03/09/2024, 04/24/2023, 12/13/2022, Additional history exists Cholesterol Screening (Lipid Panel) 05/13/2028 05/13/2023 Zoster Vaccines Completed 07/04/2022, 11/28/2021 RSV Immunization Adult Patients Completed 05/20/2023 Influenza Vaccine Completed 02/11/2025, , 04/16/2023, Additional history exists HIB Vaccines Aged Out No longer eligi ble based on patient's age to complete this topic HPV Vaccines Aged Out No longer eligi ble based on patient's age to complete this topic Hepatitis A Vaccines Aged Out No long er eligible based on patient's age to complete this topic Hepatitis B Vaccines Aged Out No long er eligible based on patient's age to complete this topic IPV Vaccines Aged Out No longer eligi ble based on patient's age to complete this topic MMR Vaccines Aged Out No longer eligi ble based on patient's age to complete this topic Meningococcal ACWY Vaccine Aged Out N o longer eligible based on patient's age to complete this topic Meningococcal B Vaccine Aged Out No l onger eligible based on patient's age to complete this topic RSV Immunization Patients Under 20 months Aged Out No longer eligible based on patient's age to complete this topic Varicella Vaccines Aged Out No longer eligible based on patient's age to complete this topic Medical Devices Implanted Type Area Data Abstractor Device Identifier Shelf Expiration Date Model / Serial / Lot Bsci-Crm [id number] Implanted: (Quantity not on file) Cardiac Pacemaker [employer] C[employer]HY[employer] MGMT [id number] / [id number] / Procedures Procedure Name Priority Date/Time Associated Diagnosis Comments CARDIAC DEVICE CHECK- REMOTE- MURJ Routine 02/16/2025 9:28 AM EDT CARDIAC DEVICE CHECK- REMOTE- MURJ Routine 01/10/2025 12:14 PM EDT TRANSTHORACIC ECHOCARDIOGRAM (TTE) COMPLETE Routine 12/15/2024 11:08 AM EDT Coronary artery disease involving chilkoot coronary artery of chilkoot heart without angina pectoris LIPID PANEL Routine 05/13/2023 from Last 3 Months or Most Recently Relevant to Health Maintenance Results * Cardiac device check - Remote- MURJ (02/16/2025 9:28 AM EDT) Only the most recent of2 resultswithin the time period is included. Date Time Interrogation Session [id number] CV DEVICE CHECK Type Interrogation Session Remote Patient Initiated CV DEVICE CHECK Implantable Pulse Generator Data Abstractor BSX CV DEVICE CHECK Implantable Pulse Generator Type IPG CV DEVICE CHECK Implantable Pulse Generator Model L111 CV DEVICE CHECK Implantable Pulse Generator Serial Number [id number] CV DEVICE CHECK Implantable Pulse Generator Implant Date 20230822 CV DEVICE CHECK Battery Remaining Percentage 100.00 CV DEVICE CHECK Battery Remaining Longevity 90.0 CV DEVICE CHECK Battery Status Beginning of Service CV DEVICE CHECK Joni Statistic RA Percent Paced 27.00 CV DEVICE CHECK Ojni Statistic RV Percent Paced 4.00 CV DEVICE CHECK Atrial Tachy Statistic AT/AF Lawrence Percent 0.00 CV DEVICE CHECK Lead Channel Sensing Intrinsic Amplitude 10.800 CV DEVICE CHECK Lead Channel Setting Sensing Sensitivity 0.25 CV DEVICE CHECK Lead Channel Impedance Value 634 CV DEVICE CHECK Lead Channel Pacing Threshold Amplitude 2.300 CV DEVICE CHECK Lead Channel Pacing Threshold Pulse Width 0.4 CV DEVICE CHECK Lead Channel RA Pacing Threshold Date 2025-02-08 CV DEVICE CHECK Lead Channel Setting Pacing Amplitude 4.600 CV DEVICE CHECK Lead Channel Setting Pacing Pulse Width 0.4 CV DEVICE CHECK Lead Channel Sensing Intrinsic Amplitude 25.000 CV DEVICE CHECK Lead Channel Setting Sensing Sensitivity 0.60 CV DEVICE CHECK Lead Channel Impedance Value 743 CV DEVICE CHECK Lead Channel Pacing Threshold Amplitude 0.900 CV DEVICE CHECK Lead Channel Pacing Threshold Pulse Width 0.4 CV DEVICE CHECK Lead Channel RV Pacing Threshold Date 2025-02-08 CV DEVICE CHECK Lead Channel Setting Pacing Amplitude 1.500 CV DEVICE CHECK Lead Channel Setting Pacing Pulse Width 0.4 CV DEVICE CHECK Joni Setting Mode (NBG Code) DDDR CV DEVICE CHECK Joni Setting Lower Rate Limit 60 CV DEVICE CHECK Joni Setting AT Mode Switch Rate 170 CV DEVICE CHECK Joni Setting Maximum Tracking Rate 130 CV DEVICE CHECK Joni Setting Maximum Sensor Rate 130 CV DEVICE CHECK Joni Setting PAV Delay 80 CV DEVICE CHECK Joni Setting JEREL Delay 65 CV DEVICE CHECK Zone Setting Type Category VT CV DEVICE CHECK Rate 160 CV DEVICE CHECK Zone Setting Status Monitor CV DEVICE CHECK Zone ID 1 CV DEVICE CHECK Date of Service 2025-04-12 CV DEVICE CHECK Anatomical Region Laterality Modality Device Interroga tion 02/09/2025 10:5 9 AM EDT Impressions 02/16/2025 9:24 AM EDT Normal Remote: No Events Triage Request * Normal Device Function * Alerts or events: None * Battery: Battery is at 100%, 7.50 yrs * Sensing, impedance and thresholds reviewed * Programmed parameters reviewed * Presenting rhythm reviewed * Heart Rate Histograms reviewed * No significant changes noted Additional Notes: Patient sent transmission c///o dizziness. Presenting rhythm. APVS/ /VS/ PAC/VS repeating pattern Narrative Procedure Note Nadia Salas PA - 02/16/2025 IMPRESSION: Normal Remote: No Events Triage Request * Normal Device Function * Alerts or events: None * Battery: Battery is at 100%, 7.50 yrs * Sensing, impedance and thresholds reviewed * Programmed parameters reviewed * Presenting rhythm reviewed * Heart Rate Histograms reviewed * No significant changes noted Additional Notes: Patient sent transmission c///o dizziness.Presenting rhythm. APVS/ /VS/ PAC/VS repeating pattern us Nadia Josue MUIR CV IMPLANTABLE CARDIAC DEVICE MS OCEDURES Final Result * (ABNORMAL) TRANSTHORACIC ECHOCARDIOGRAM (TTE) COMPLETE (12/15/2024 11:08 AM EDT) Left Atrium Minor [place] 5.6 cm CV PACS Left Atrium Major [place] 4.8 cm CV PACS LA Area Sys (A2C) 21 cm2 CV PACS LA Area Sys (A4C) 17 cm2 CV PACS LA Volume (BP) 57 mL CV PACS RA Area 9.2 cm2 CV PACS RA 2D Volume 17 mL CV PACS AV Regurgitation PHT 560 ms CV PACS AR Max Velocity 4.3 m/s CV PACS Aortic Sinus Valsalva 3.6 cm CV PACS Ascending Aorta 3.9 cm CV PACS IVSD 1.0 0.6 - 1.0 cm CV PACS LVIDD 5.0 4.2 - 5.8 cm CV PACS LVIDS 3.1 2.5 - 4.0 cm CV PACS LVOT Diameter 2.7 cm CV PACS LVOT Mean Tor 0.6 m/s CV PACS LVOT Mean Grad 2 mmHg CV PACS LVOT Peak VTI 18.5 cm CV PACS LVOT Peak Tor 0.9 m/s CV PACS LVOT Peak Gradient 3 mmHg CV PACS LVPWD 1.0 0.6 - 1.0 cm CV PACS MV E' Tissue Velocity Lateral 8 cm/s CV PACS MV E' Tissue Velocity Septal 8 cm/s CV PACS LVOT Area 5.7 cm2 CV PACS LVOT Stroke Volume 106 mL CV PACS MV Deceleration [place] 3.7 m/s2 CV PACS E Wave Deceleration Time 171 119 - 242 ms CV PACS MV PHT 50 ms CV PACS MV Peak A Tor 0.60 m/s CV PACS MV Peak E Tor 0.63 m/s CV PACS MV Area PHT 4.4 cm2 CV PACS PV Acceleration Time 132 ms CV PACS RV Diastolic Basal Dimension 3.7 2.5 - 4.1 cm CV PACS TAPSE 20 mm CV PACS E/E' Ratio Septal 8 CV PACS E/E' Ratio Averaged 8 CV PACS Relative Wall Thickness ratio 0.40 CV PACS FS 38 % CV PACS LV Mass 2D 182 g CV PACS LVOT flow 343 mL/s CV PACS E/A Ratio 1.1 CV PACS E/E' Ratio Lateral 8 CV PACS BSA 2.27 m2 CV PACS LA Volume Index (BP) 26 mL/m2 CV PACS LVIDD Index 2.24 cm/m2 CV PACS LVIDS Index 1.39 cm/m2 CV PACS LV Mass Index 2D 82 50 - 102 g/m2 CV PACS LVOT Stroke Index 48 mL/m2 CV PACS RA 2D Volume Index 8(A) 18 - 32 mL/m2 CV PACS Ascending Aorta Index 1.75 cm/m2 CV PACS Anatomical Region Laterality Modality Ultrasound Narrative 12/17/2024 1:21 PM EDT Left ventricle cavity size is normal. Wall thickness is normal. Systolic function is normal with an ejection fraction of 55-60%. There are no regional LV wall motion abnormalities. There is no diastolic dysfunction. Right ventricle cavity is normal. Right ventricular systolic function is normal. Mild aortic valve regurgitation. Tricuspid regurgitation is inadequate for estimation of right ventricular systolic pressure. Left Ventricle Left ventricle cavity size is normal. Wall thickness is normal. Systolic function is normal with an ejection fraction of 55-60%. There are no regional LV wall motion abnormalities. There is no diastolic dysfunction. Right Ventricle Right ventricle cavity appears normal. Systolic function is normal. Normal TAPSE (> 17 mm). A pacer wire is present in the right ventricle. Left Atrium Left atrium cavity size is normal. Right Atrium Right atrium cavity is normal. IVC/SVC Inferior vena cava was not well visualized. Mitral Valve The leaflets are mildly thickened and exhibit normal excursion. There is mild annular calcification. There is trace regurgitation. There is no significant stenosis noted. Tricuspid Valve Tricuspid valve structure is normal. The leaflets exhibit normal excursion. Tricuspid regurgitation is inadequate for estimation of right ventricular systolic pressure. There is no significant tricuspid valve stenosis. Aortic Valve The aortic valve is trileaflet. There is mild regurgitation. There is no evidence of aortic valve stenosis. Pulmonic Valve Pulmonic valve structure is normal. There is trace pulmonic valve regurgitation. Ascending Aorta The ascending aorta is 3.9 cm. Study Details Overall the study quality was adequate. Cardiac history: PPM/AICD implant. Corazon Nelson NP CV ECHO PROCEDURES Final Result * (ABNORMAL) Lipid panel (05/13/2023) Triglycerides 111 <=150 mg/dL Cholesterol 113 <=200 mg/dL HDL 31(A) >=39 mg/dL LDL Cholesterol 60 0 - 130 mg/dL Blood Venous blood specimen / Unknown Historical Provider LAB BLOOD ORDERABLES Dunia l Result from Last 3 Months or Most Recently Relevant to Health Maintenance Insurance [employer] - [place] MEDICARE ADVANTAGE [facility] Care Teams Bookbinder Apprentice Relationship Specialty Start Date End Date Ngozi Jenkins NP [address] [place] [address] PCP - General Nurse Practitioner 09/15/24
[2025-02-24 16:01] LABS: B Type Natriuretic Peptide 49 pg/mL (<100)
[2025-02-24 16:01] LABS: Troponin-I High Sensitivity 9.3 ng/L (<3.5-35.0)
[2025-02-24 17:30] LABS: Appearance Urine Clear; Glucose Urine UA Negative (Negative); PH 7.5 (5.0-9.0); Specific Gravity - Urine 1.015 (1.005-1.025)
[2025-02-24 17:40] LABS: Reflex Lactate? Lactic Acid Added
--- NOTE | 2025-02-24 17:41 | PC.NURSE ---
Pt reports feeling better since arrival; pt A+OX3; spouse at bedside; pt AV paced per tele; pt to CT scan per orders; no complaints at this time
--- NOTE | 2025-02-24 17:58 | MHC.EDTECH ---
Addendum entered by Cesilia Murray 02/24/25 18:30: Per RN, hold draw until fluids finish. Original Note: PtUnable to draw lactic at this time due to pt not being in the room.
[2025-02-24] MEDS: iohexoL 350 MG/ML 100 ML INFUS..BTL IV (18:02)
[2025-02-24 19:48] LABS: ~Lactic Acid-LAB USE ONLY 1.8 mmol/L (0.5-2.0)
[2025-02-24 19:55] LABS: Troponin-I High Sensitivity 11.7 ng/L (<3.5-35.0)
--- NOTE | 2025-02-24 20:17 | MHC.EDTECH ---
Assisted pt with ambulation trial. O2 started at 94% went down to 91% and kept consistent at 93-94% Provider aware.
== END 2025-02-24 21:00 | disposition home or self-care (01) ==
PROVIDERS: Physician Assistant; Physician Assistant Medical; Emergency Provider Emergency Medicine; PCP Nurse Practitioner Primary Care
DX: R55 Syncope and collapse (principal); R11.0 Nausea; R51.9 Headache, unspecified; R07.89 Other chest pain; E87.20 Acidosis, unspecified; I44.0 Atrioventricular block, first degree; R94.31 Abnormal electrocardiogram [ECG] [EKG]; R10.2 Pelvic and perineal pain; R06.02 Shortness of breath; T63.441A Toxic effect of venom of bees, accidental (unintentional), initial encounter; Y93.9 Activity, unspecified; Y92.9 Unspecified place or not applicable; Y99.8 Other external cause status; Z95.0 Presence of cardiac pacemaker; Z79.899 Other long term (current) drug therapy
CPT/HCPCS: 36415; 70450; 71045; 71275; 72125; 74177; 80053; 81003; 83605; 83880; 84484; 85025; 85610; 85730; 87040; 93005; 96360; 96361; 99284; 99285; Q9967

== ENCOUNTER → 2025-02-24 15:00 | Outpatient (BNV) | payer OTHER, SELFPAY | PROVIDERS: Emergency Provider Emergency Medicine; PCP Nurse Practitioner Primary Care; Visit Provider Internal Medicine Cardiovascular Disease | DX: I44.0 Atrioventricular block, first degree (principal); I44.4 Left anterior fascicular block; I51.7 Cardiomegaly | CPT/HCPCS: 93010 ==

== ENCOUNTER → 2025-02-24 15:00 | Outpatient (BNV) | payer OTHER, MEDICARE, SELFPAY | PROVIDERS: Emergency Provider Emergency Medicine; PCP Nurse Practitioner Primary Care; Visit Provider Radiology Diagnostic Radiology | DX: R55 Syncope and collapse (principal); J18.9 Pneumonia, unspecified organism; W19.XXXA Unspecified fall, initial encounter; K80.20 Calculus of gallbladder without cholecystitis without obstruction | CPT/HCPCS: 70450; 71045; 71275; 72125; 74177 ==